=== PATIENT | male | born 1990 | race African-American/Black ===

== ENCOUNTER 2017-05-29 06:26 | Emergency (ER) | payer OTHER ==
--- NOTE | 2017-05-29 07:03 | EDM.PDOC ---
ED HPI GENERAL MEDICAL PROBLEM - General Chief Complaint: Laceration Stated Complaint: RIGHT HAND LAC Time Seen by Provider: 05/29/17 07:02 Source of Information: Reports: Patient History Limitations: Reports: No Limitations - History of Present Illness INITIAL COMMENTS - FREE TEXT/NARRATIVE: 27-year-old male attends the ED with a laceration to the dorsal aspect of his right hand primarily over the second metacarpal. This is work-related injury. Occurred about 0430 hrs. this morning. He is trying to rescue a gap can from a generator that phone in a hole and as he was pulling his hand back out he caught the metal edge of the gas filling tube. This resulted in a jagged 3.0 laceration. Patient can't recall when he had last had a tetanus toxoid. It will therefore be updated today. Patient has washed and cleansed the wound thoroughly. Onset: Today Onset Date: 05/29/17 Onset Time: 04:30 Duration: Hour(s): Location: Reports: Upper Extremity, Right (Right dorsal hand as described above) Quality: Reports: Ache, Stabbing Severity: Moderate Improves with: Reports: None Worsens with: Reports: Movement Context: Denies: Activity, Exercise, Lifting, Sick Contact, Trauma, Other Associated Symptoms: Reports: No Other Symptoms Treatments VINYL DIPPER: Reports: Other (see below) - Related Data Allergies Allergy/AdvReac Type Severity Reaction Status Date / Time No Known Allergies Allergy Verified 05/29/17 06:30 Home Meds: Home Meds . [No Known Home Meds] 05/29/17 [History] Past Medical History - Past Health History Medical/Surgical History: Denies Medical/Surgical History Social & Family History - Tobacco Use Smoking Status *Q: Never Smoker - Recreational Drug Use Recreational Drug Use: No - Living Situation & Occupation Occupation: Employed ED ROS GENERAL - Review of Systems Review Of Systems: See Below Constitutional: Reports: No Symptoms HEENT: Reports: No Symptoms Respiratory: Reports: No Symptoms Cardiovascular: Reports: No Symptoms Endocrine: Reports: No Symptoms GI/Abdominal: Reports: No Symptoms : Reports: No Symptoms Musculoskeletal: Reports: No Symptoms Skin: Reports: No Symptoms Neurological: Reports: No Symptoms Psychiatric: Reports: No Symptoms Hematologic/Lymphatic: Reports: No Symptoms Immunologic: Reports: No Symptoms ED EXAM, SKIN/RASH Exam: See Below Exam Limited By: No Limitations General Appearance: Alert, WD/WN, No Apparent Distress Extremities: Other (Examination was limited to his right dorsal hand. He has a jagged laceration with avulsion of the skin distally of about 1.3 cm. Memory more proximal aspect of the wound is deeper and is approximately 1.4 cm in length. It require laceration repair. His full unopposed range of motion of the index finger without any evidence of tendon or neurovascular compromise.) Neurological: Alert, Oriented, CN II-XII Intact, Normal Cognition, Normal Gait Psychiatric: Normal Affect, Normal Mood Skin: Warm, Dry, Intact, Normal Color, No Rash ED SKIN PROCEDURES - Laceration/Wound Repair Right Distal Dorsal Hand Lac/Wound length In cm: 2.0 Appearance: Subcutaneous, Clean Distal NVT: Neuro & Vascular Intact Anesthetic Type: Local Local Anesthesia - Lidocaine (Xylocaine): 1% Plain Local Anesthetic Volume: 3cc Skin Prep: Saline Closed with: Sutures Suture Size: 4-0 # of Sutures: 6 Suture Type: Nylon, Interrupted, Simple Course - Vital Signs Last Recorded V/S: Last Vital Signs Temp 37.1 C 05/29/17 06:31 Pulse 72 05/29/17 06:31 Resp 16 05/29/17 06:31 BP 129/108 H 05/29/17 06:31 Pulse Ox 100 05/29/17 06:31 - Orders/Labs/Meds Orders: Active Orders 24 hr Category Date Time Status Vaccines to be Administered [RC] PER UNIT ROUTINE Care 05/29/17 07:10 Active Meds: Medications Discontinued Medications Generic Name Dose Route Start Last Admin Trade Name Freq PRN Reason Stop Dose Admin Diphtheria/Tetanus/Acell Pertussis 0.5 ml 05/29/17 07:10 05/29/17 07:23 Adacel IM 05/29/17 07:11 0.5 ml .ONCE ONE Administration Lidocaine HCl 10 ml 05/29/17 07:10 05/29/17 07:28 Xylocaine 1% INJECT 05/29/17 07:11 10 ml ONETIME ONE Administration - Radiology Interpretation Free Text/Narrative:: 27-year-old male presents to the ED with a laceration to the dorsal aspect of his right hand. This occurred in the workplace this morning about 0430 hrs. He has suffered a partial avulsion of skin as well as a laceration of skin partially 3 cm in length in total. The wound will be cleansed and then sutured where appropriate under local anesthetic using lidocaine 1%. T dap will be updated today as well. - Re-Assessments/Exams Free Text/Narrative Re-Assessment/Exam: 05/29/17 07:37 2 cm of the 3 cm laceration dorsal aspect right hand were sutured under local anesthetic 6 sutures. Patient tolerated the procedure well. Wound was then cleansed and dressed with topical antibiotic and a dressing. He will be returning to work tonight but with limited duties involving his right hand. Patient is [place] and will be be home to have his sutures removed in 10 days' time. Tdap was updated today. Departure - Departure Time of Disposition: 07:40 Disposition: Home, Self-Care 01 Condition: Fair Clinical Impression: Laceration of right hand Qualifiers: Encounter type: initial encounter Foreign body presence: without foreign body Qualified Code(s): S61.411A - Laceration without foreign body of right hand, initial encounter - Discharge Information Referrals: PCP,None [Primary Care Provider] - Forms: ED Department Discharge Additional Instructions: Evaluation in the emergency department today in regards to acute injury to the dorsal aspect of your right hand that occurred in the workplace this morning at 0430 hrs. Suffered a combination laceration avulsion of skin in a linear fashion on the dorsal aspect of the right hand primarily over the index finger and second metacarpal own. There is no evidence of tendon or neurovascular injury. Wound was cleansed and then sutured under local anesthetic using 1% lidocaine. Treatment at home is daily cleanse wound with soap and water. Showering is okay. Then apply topical antibiotic such as bacitracin or Polysporin once daily and a bandage to the area to keep it clean. Sutures are going to need to be removed in 10 days' time. May tentatively return to work tonight. - My Orders Last 24 Hours: My Active Orders 05/29/17 07:10 Vaccines to be Administered [RC] PER UNIT ROUTINE - Assessment/Plan Last 24 Hours: My Active Orders 05/29/17 07:10 Vaccines to be Administered [RC] PER UNIT ROUTINE
[2017-05-29] MEDS ORDERED: Lidocaine 1% 10 ML MDV INJECT ONE (07:10)
[2017-05-29] MEDS ORDERED: Diphtheria,Pertussis(Acell),Tetanus Vaccine 0.5 ML SDV IM ONE (07:10)
== END 2017-05-29 07:57 | disposition home or self-care (01) ==
LOC: JD.ED 06:26
DX: S61.411A Laceration without foreign body of right hand, initial encounter (principal); Z23 Encounter for immunization; W26.8XXA Contact with other sharp object(s), not elsewhere classified, initial encounter
CPT/HCPCS: 12001; 90471; 90715; 99282-25; 99283-25